=== PATIENT | male | born 1935 | race African-American/Black ===

== ENCOUNTER 2016-11-29 11:26 | Emergency (ER) | payer BC, OTHER ==
[~2016-11-29] VITALS: Ht 172.7 cm; Wt 70.3 kg
--- NOTE | 2016-11-29 12:01 | Emergency Room Report ---
History of Present Illness General Chief Complaint: General Complaint Source: Patient Present Illness HPI Patient present with family Complaint is that patient has been having what appears to be cook pickled meat episodes which have caused him to be having difficulty speaking during the acute episode The granddaughter is here and reports that the patient's primary physician had mentioned that there might be a diaphragm issue Speaking to the patient he feels that drinking milk yesterday had exacerbated his situation He feels that when the pickup and belching starts he has difficulty speaking fully and can't catch his worse the right way Patient had an acute episode while at bedside appear to have belching and hiccups during this episode the patient was attempting to speak at which point I did let her know to lay back and not try to speak the episode resolved And the patient again was able to speak clearly and reports that this is episode that is talking about denies any focal weakness denies any chest pain or shortness of breath, Allergies: Coded Allergies: No Known Allergies (Unverified , 11/29/16) Patient History Past Medical History: see triage record Pertinent Family History: none Reviewed Nursing Documentation: PMH: Agreed, PSxH: Agreed Nursing Documentation-PMH Past Medical History: No History, Except For Hx Hypertension: Yes Hx Diabetes: No History Of Psychiatric Problem: Yes - dementia Hx Cerebrovascular Accident: No Review of Systems All Other Systems: negative except mentioned in HPI Physical Exam Vital Signs Date Time Temp Pulse Resp B/P (MAP) Pulse Ox O2 Delivery O2 Flow Rate FiO2 11/29/16 11:29 98.4 85 18 175/79 98 Room Air Sp02 EP Interpretation: reviewed, normal General Appearance: well appearing, no apparent distress - appears stated age Head: normocephalic, atraumatic Eyes: bilateral eye PERRL, bilateral eye EOMI ENT: hearing grossly normal, normal pharynx, TMs + canals normal, uvula midline Neck: full range of motion, supple, no meningismus, no bony tend Respiratory: lungs clear, normal breath sounds, no rhonchi, no respiratory distress, no retraction, no accessory muscle use Cardiovascular #1: normal peripheral pulses, regular rate, rhythm, no edema, no gallop, no JVD, no murmur Gastrointestinal: normal bowel sounds, non tender, soft, no mass, no organomegaly, non-distended, no guarding, no hernia, no pulsatile mass, no rebound Genitourinary: no CVA tenderness Musculoskeletal: normal inspection Neurologic: oriented x3, responsive, administration intern III-XII nml as tested, motor strength/ tone normal, sensory intact Psychiatric: mood/affect normal Skin: no rash, warm/dry, palpation normal, other - vitiligo Lymphatic: normal inspection, no adenopathy Medical Decision Making Diagnostic Impression: Primary Impression: Reflux esophagitis Additional Impression: Hiccups ER Course Multiple differentials considered Given the patient's appearance appears to have acute spasming of the distal esophageal/gastrointestinal type pathology Initial workup was initiated blood work and imaging or appropriate I did not feel further emergency room intervention was required patient resting comfortably and stable for close outpatient follow Labs Test 11/29/16 12:20 White Blood Count 10.4 K/UL (4.8-10.8) Red Blood Count 6.11 M/UL (4.70-6.10) Hemoglobin 16.2 G/DL (14.2-18.0) Hematocrit 49.7 % (42.0-52.0) Mean Corpuscular Volume 81 FL (80-99) Mean Corpuscular Hemoglobin 26.5 PG (27.0-31.0) Mean Corpuscular Hemoglobin Concent 32.5 G/DL (32.0-36.0) Red Cell Distribution Width 15.1 % (11.6-14.8) Platelet Count 303 K/UL (150-450) Mean Platelet Volume 6.4 FL (6.5-10.1) Neutrophils (%) (Auto) 71.1 % (45.0-75.0) Lymphocytes (%) (Auto) 18.1 % (20.0-45.0) Monocytes (%) (Auto) 6.7 % (1.0-10.0) Eosinophils (%) (Auto) 3.3 % (0.0-3.0) Basophils (%) (Auto) 0.7 % (0.0-2.0) Sodium Level 140 MMOL/L (136-145) Potassium Level 4.0 MMOL/L (3.5-5.1) Chloride Level 102 MMOL/L (98-107) Carbon Dioxide Level 26 MMOL/L (21-32) Anion Gap 12 (5-15) Blood Urea Nitrogen 11 mg/dL (7-18) Creatinine 1.0 MG/DL (0.55-1.30) Estimat Glomerular Filtration Rate mL/min (>60) Glucose Level 109 MG/DL (74-106) Calcium Level 9.8 MG/DL (8.5-10.1) Total Bilirubin 0.7 MG/DL (0.2-1.0) Aspartate Amino Transf (AST/SGOT) 24 U/L (15-37) Alanine Aminotransferase (ALT/SGPT) 19 U/L (12-78) Alkaline Phosphatase 133 U/L (46-116) Total Creatine Kinase 267 U/L (26-308) Creatine Kinase MB 3.0 NG/ML (0.0-3.6) Creatine Kinase MB Relative Index 1.1 Troponin I 0.000 ng/mL (0.000-0.056) Total Protein 8.9 G/DL (6.4-8.2) Albumin 4.3 G/DL (3.4-5.0) Globulin 4.6 g/dL Albumin/Globulin Ratio 0.9 (1.0-2.7) Lipase 156 U/L (73-393) Rhythm Strip Diag. Results EP Interpretation: yes Rate: 67 Rhythm: NSR, no PVC's, no ectopy Chest X-Ray Diagnostic Results Chest X-Ray Diagnostic Results : Chest X-Ray Ordered: Yes # of Views/Limited/Complete: 1 View Indication: Chest Pain EP Interpretation: Yes Interpretation: no consolidation, no effusion, no pneumothorax Impression: No acute disease Electronically Signed by: Rachana Thomas DO Last Vital Signs Date Time Temp Pulse Resp B/P (MAP) Pulse Ox O2 Delivery O2 Flow Rate FiO2 11/29/16 11:29 98.4 85 18 175/79 98 Room Air Status: improved Disposition: HOME, SELF-CARE Condition: Improved Scripts Famotidine (PEPCID) 40 Mg Tablet 40 MG PO DAILY, #7 TAB 0 Refills Prov: RACHANA THOMAS D.O. 11/29/16 Additional Instructions: Patient is provided with the discharge instructions notified to follow up with primary doctor in the next 2-3 days otherwise return to the er with any worsening symptoms. Please note that this report is being documented using DRAGON technology. This can lead to erroneous entry secondary to incorrect interpretation by the dictating instrument. RACHANA THOMAS D.O. Nov 29, 2016 12:01
[2016-11-29 12:30] VITALS: BP 146/74
[2016-11-29 12:39] LABS: BASOPHILS % (AUTO) 0.7 % (0.0-2.0); EOSINOPHILS % (AUTO) 3.3 % (0.0-3.0); LYMPHOCYTES % (AUTO) 18.1 % (20.0-45.0); MEAN CORPUSCULAR HEMOGLOBIN 26.5 PG (27.0-31.0); MEAN CORPUSCULAR HGB CONC 32.5 G/DL (32.0-36.0); MEAN CORPUSCULAR VOLUME 81 FL (80-99); MEAN PLATELET VOLUME 6.4 FL (6.5-10.1); MONOCYTES % (AUTO) 6.7 % (1.0-10.0); NEUTROPHILS % (AUTO) 71.1 % (45.0-75.0); PLATELET COUNT 303 K/UL (150-450); RED BLOOD COUNT 6.11 M/UL (4.70-6.10); RED CELL DISTRIBUTION WIDTH 15.1 % (11.6-14.8); WHITE BLOOD COUNT 10.4 K/UL (4.8-10.8)
[2016-11-29 12:45] VITALS: BP 134/72
[2016-11-29 13:07] LABS: ALANINE AMINOTRANSFERASE 19 U/L (12-78); ALBUMIN/GLOBULIN RATIO 0.9 (1.0-2.7); ANION GAP 12 (5-15); ASPARTATE AMINO TRANSFERASE 24 U/L (15-37); CALCIUM 9.8 MG/DL (8.5-10.1); CARBON DIOXIDE 26 MMOL/L (21-32); CHLORIDE 102 MMOL/L (98-107); LIPASE 156 U/L (73-393); SODIUM 140 MMOL/L (136-145); TOTAL PROTEIN 8.9 G/DL (6.4-8.2)
[2016-11-29] MEDS ORDERED: PEPCID40 MG PO (13:36)
--- NOTE | 2016-11-30 09:56 | Diagnostic Imaging Report ---
Indication: Chest pain Technique: One view of the chest Comparison: none Findings: The lungs and pleural spaces are clear. Heart size is normal. Aorta is tortuous calcified and elongated and ectatic. Minimal basilar atelectasis or scarring is seen in the right. Impression: No acute process
--- NOTE | 2016-12-08 08:24 | Cardiology Report ---
APPROVED REPORT EKG Measurement Heart [id number] CO 160P76 [id number] Sinus rhythm with premature atrial complexes Left ventricular hypertrophy with repolarization abnormality Abnormal ECG
== END 2016-11-29 13:00 | disposition home or self-care (01) ==
LOC: EMR 12:05
DX: K21.0 Gastro-esophageal reflux disease with esophagitis (principal); R06.6 Hiccough; F03.90 Unspecified dementia, unspecified severity, without behavioral disturbance, psychotic disturbance, mood disturbance, and anxiety
CPT/HCPCS: 36415; 71010; 80053; 82550; 82553; 83690; 84484; 85025; 93005; 99283